=== PATIENT | male | born 1960 | race Caucasian/White ===

== ENCOUNTER 2017-10-04 13:35 | Emergency (ER) | payer MEDICAID ==
[~2017-10-04] VITALS: Ht 177.8 cm; Wt 72.7 kg
[~2017-10-04 13:35] MED LIST: CLIN300C85 PO; DILT180C66 PO; PROP10TA10 PO; TRAM50TA2 PO
[2017-10-04] MEDS ORDERED: haloperidol lactate 5mg/ml inj IM ONE (13:40)
[2017-10-04] MEDS ORDERED: LORazepam 2 mg/ml vial IM ONE (13:40)
[2017-10-04] MEDS ORDERED: normal saline 1000ML IV soln IVB ONE ×2 (13:50)
[2017-10-04 14:01] LABS: BASOPHILS # (AUTO) 0.1 X10'3 (0-0.2); BASOPHILS % (AUTO) 0.6 % (0-1); EOSINOPHILS # (AUTO) 0.2 X10'3 (0-0.9); EOSINOPHILS % (AUTO) 3.1 % (0-6); HEMATOCRIT 39.1 % (42.0-52.0); HEMOGLOBIN 13.2 g/dl (14.0-17.9); LYMPHOCYTES # (AUTO) 2.9 X10'3 (1.1-4.8); LYMPHOCYTES % (AUTO) 37.3 % (21-51); MEAN CORPUSCULAR HEMOGLOBIN 31.7 PG (27.0-31.0); MEAN CORPUSCULAR HGB CONC 33.8 % (33.0-36.5); MEAN CORPUSCULAR VOLUME 93.6 FL (78-98); MEAN PLATELET VOLUME 8.6 FL (7.4-10.4); MONOCYTES # (AUTO) 0.4 X10'3 (0-0.9); MONOCYTES % (AUTO) 5.2 % (2-12); NEUTROPHILS # (AUTO) 4.2 X10'3 (1.8-7.7); NEUTROPHILS % (AUTO) 53.8 % (42-75); PLATELET COUNT 239 X10'3 (140-440); RED BLOOD COUNT 4.18 X10'6 (4.70-6.10); RED CELL DISTRIBUTION WIDTH 13.8 % (11.5-14.5); WHITE BLOOD COUNT 7.9 X10'3 (4.5-11.0)
[2017-10-04 14:18] LABS: ALANINE AMINOTRANSFERASE 31 U/L (12-78); ALBUMIN 3.5 G/DL (3.4-5.0); ALKALINE PHOSPHATASE 90 IU/L (46-116); ANION GAP 10 (8-16); ASPARTATE AMINO TRANSFERASE 23 U/L (10-37); BILIRUBIN,TOTAL 0.2 MG/DL (0.1-1.0); BLOOD UREA NITROGEN 16 MG/DL (7-18); CALCIUM 8.4 MG/DL (8.5-10.1); CHLORIDE 109 MMOL/L (99-107); CREATININE 0.84 MG/DL (0.60-1.10); GLUCOSE 86 MG/DL (70-104); POTASSIUM 4.1 MMOL/L (3.5-5.1); SODIUM 144 MMOL/L (135-145); TOTAL CARBON DIOXIDE 24.6 MMOL/L (24-32); TOTAL PROTEIN 7.1 G/DL (6.4-8.2); eGFR > 90 ML/MIN
[2017-10-04 14:22] LABS: ETHANOL 0.283 GM/DL (0.0-0.010); TROPONIN I < 0.04 NG/ML (0.0-0.05)
[2017-10-04 14:32] LABS: CLARITY,URINE CLEAR (Clear); COLOR,URINE YELLOW (Yellow); GLUCOSE, URINE NEGATIVE (Neg); KETONES,URINE NEGATIVE (Neg); LEUKOCYTE ESTERASE ,URINE NEGATIVE (Neg); NITRITES, URINE NEGATIVE (Neg); OCCULT BLOOD,URINE NEGATIVE (Neg); PH,URINE 5.5 (4.8-8.0); PROTEIN,URINE NEGATIVE (Neg); UROBILINOGEN,URINE 0.2 E.U/dL (0.2-1.0)
[2017-10-04 14:35] LABS: UA COLLECTION TYPE OTHER
[2017-10-04 15:07] LABS: URINE AMPHETAMINE SCREEN POSITIVE (Neg); URINE BARBITUATE SCREEN NEGATIVE (Neg); URINE BENZODIAZEPINES SCREEN NEGATIVE (Neg); URINE CANNABINOID SCREEN POSITIVE (Neg); URINE COCAINE SCREEN NEGATIVE (Neg); URINE METHADONE SCREEN NEGATIVE (Neg); URINE OPIATE SCREEN NEGATIVE (Neg); URINE PHENCYCLIDINE SCREEN NEGATIVE (Neg)
[2017-10-04 17:47] VITALS: BP 140/81
== END 2017-10-04 18:15 | disposition left against medical advice (07) ==
LOC: EDBD 13:35 → ER 13:37
DX: F10.129 Alcohol abuse with intoxication, unspecified (principal); Z90.49 Acquired absence of other specified parts of digestive tract; Z90.89 Acquired absence of other organs; Z98.890 Other specified postprocedural states; Z88.5 Allergy status to narcotic agent; Z88.8 Allergy status to other drugs, medicaments and biological substances; Z79.899 Other long term (current) drug therapy; Y90.9 Presence of alcohol in blood, level not specified
CPT/HCPCS: 36415; 70450; 71045; 80053; 80305; 80320; 81003; 84484; 85025; 93005; 96372; 99285; A4353; J1630; J2060; J7030

== ENCOUNTER 2019-08-20 20:16 | Emergency (ER) | payer MEDICAID ==
[~2019-08-20] VITALS: Ht 170.2 cm; Wt 84.1 kg
[~2019-08-20 20:16] MED LIST changes: +CLIN-97 PO; -CLIN300C85 PO
--- NOTE | 2019-08-20 21:47 | NUR ---
irigated left ear with water and hydrogyn proxide as ordered. Cream colored fluid and clumps of dirt expelled from ear.
[2019-08-20 21:48] LABS: BASOPHILS # (AUTO) 0.1 X10'3 (0-0.2); EOSINOPHILS # (AUTO) 0.2 X10'3 (0-0.9); EOSINOPHILS % (AUTO) 3.6 % (0-6); HEMATOCRIT 40.6 % (42.0-52.0); HEMOGLOBIN 13.5 g/dl (14.0-17.9); LYMPHOCYTES # (AUTO) 1.5 X10'3 (1.1-4.8); LYMPHOCYTES % (AUTO) 26.4 % (21-51); MEAN CORPUSCULAR HEMOGLOBIN 31.4 PG (27.0-31.0); MEAN CORPUSCULAR HGB CONC 33.1 g/dL (33.0-36.5); MEAN CORPUSCULAR VOLUME 94.8 FL (78-98); MEAN PLATELET VOLUME 8.5 FL (7.4-10.4); MONOCYTES # (AUTO) 0.5 X10'3 (0-0.9); MONOCYTES % (AUTO) 8.4 % (2-12); NEUTROPHILS # (AUTO) 3.5 X10'3 (1.8-7.7); NEUTROPHILS % (AUTO) 60.6 % (42-75); PLATELET COUNT 240 X10'3 (140-440); RED BLOOD COUNT 4.29 X10'6 (4.70-6.10); RED CELL DISTRIBUTION WIDTH 14.2 % (11.5-14.5); WHITE BLOOD COUNT 5.8 X10'3 (4.5-11.0)
[2019-08-20 22:02] LABS: ALANINE AMINOTRANSFERASE 49 U/L (12-78); ALBUMIN 3.5 G/DL (3.4-5.0); ALBUMIN/GLOBULIN RATIO 0.9 (1.1-1.5); ALKALINE PHOSPHATASE 154 IU/L (46-116); ANION GAP 12 (8-16); ASPARTATE AMINO TRANSFERASE 47 U/L (10-37); BILIRUBIN,TOTAL 0.4 MG/DL (0.1-1.0); BLOOD UREA NITROGEN 23 MG/DL (7-18); BUN/CREATININE RATIO 19.8 (5.4-32.0); CALCIUM 8.8 MG/DL (8.5-10.1); CHLORIDE 106 MMOL/L (99-107); CREATININE 1.16 MG/DL (0.60-1.10); GLUCOSE 159 MG/DL (70-104); POTASSIUM 3.8 MMOL/L (3.5-5.1); SODIUM 143 MMOL/L (135-145); TOTAL CARBON DIOXIDE 24.7 MMOL/L (24-32); TOTAL PROTEIN 7.3 G/DL (6.4-8.2); eGFR 64 ML/MIN
[2019-08-20] MEDS ORDERED: iohexol 300mg/ml 100ml inj. ONE (22:29)
[2019-08-20] MEDS ORDERED: piperacillin/tazo 4.5gm/100ml 100 ML IV STA (23:39)
[2019-08-20] MEDS ORDERED: vancomycin/NS 1 GM ADD-VANTAGE 250 ML IV ONE (23:40)
[2019-08-21] MEDS ORDERED: AMOX-422 PO (00:42)
[2019-08-21 03:41] VITALS: BP 142/98
--- NOTE | 2019-08-21 03:46 | NUR ---
called a taxi to take pt home
== END 2019-08-21 03:43 | disposition home or self-care (01) ==
LOC: ER 20:16
DX: M54.89 Other dorsalgia (principal); I96 Gangrene, not elsewhere classified; R22.1 Localized swelling, mass and lump, neck; R06.02 Shortness of breath; R13.10 Dysphagia, unspecified; Z90.89 Acquired absence of other organs; Z98.890 Other specified postprocedural states; Z72.89 Other problems related to lifestyle; Z88.5 Allergy status to narcotic agent; Z88.8 Allergy status to other drugs, medicaments and biological substances; Z79.2 Long term (current) use of antibiotics; Z79.899 Other long term (current) drug therapy
CPT/HCPCS: 36415; 70491; 80053; 85025; 96365; 96366; 96368; 99285; J2543; J3370; Q9967; 96367

== ENCOUNTER 2020-01-19 10:55 | Emergency (ER) | payer MEDICAID ==
[~2020-01-19] VITALS: Ht 175.3 cm; Wt 80.0 kg
[2020-01-19] MEDS ORDERED: normal saline 1000ML IV soln IV ONE (15:05)
[2020-01-19] MEDS ORDERED: iohexol 300mg/ml 100ml inj. ONE (15:15)
[2020-01-19 15:42] LABS: BASOPHILS # (AUTO) 0.1 X10'3 (0-0.2); EOSINOPHILS # (AUTO) 0.2 X10'3 (0-0.9); EOSINOPHILS % (AUTO) 3.2 % (0-6); HEMATOCRIT 44.8 % (42.0-52.0); HEMOGLOBIN 14.8 g/dl (14.0-17.9); LYMPHOCYTES # (AUTO) 1.7 X10'3 (1.1-4.8); LYMPHOCYTES % (AUTO) 24.6 % (21-51); MEAN CORPUSCULAR HEMOGLOBIN 31.6 PG (27.0-31.0); MEAN CORPUSCULAR HGB CONC 33.1 g/dL (33.0-36.5); MEAN CORPUSCULAR VOLUME 95.3 FL (78-98); MEAN PLATELET VOLUME 8.5 FL (7.4-10.4); MONOCYTES # (AUTO) 0.6 X10'3 (0-0.9); MONOCYTES % (AUTO) 8.3 % (2-12); NEUTROPHILS # (AUTO) 4.4 X10'3 (1.8-7.7); NEUTROPHILS % (AUTO) 62.9 % (42-75); PLATELET COUNT 243 X10'3 (140-440); RED CELL DISTRIBUTION WIDTH 14.5 % (11.5-14.5)
[2020-01-19 15:58] LABS: ALANINE AMINOTRANSFERASE 39 U/L (12-78); ALBUMIN 3.6 G/DL (3.4-5.0); ALBUMIN/GLOBULIN RATIO 0.9 (1.1-1.5); ALKALINE PHOSPHATASE 138 IU/L (46-116); ANION GAP 8 (8-16); ASPARTATE AMINO TRANSFERASE 28 U/L (10-37); BILIRUBIN,TOTAL 0.4 MG/DL (0.1-1.0); BLOOD UREA NITROGEN 24 MG/DL (7-18); BUN/CREATININE RATIO 26.7 (5.4-32.0); CALCIUM 8.7 MG/DL (8.5-10.1); CHLORIDE 105 MMOL/L (99-107); GLUCOSE 124 MG/DL (70-104); POTASSIUM 4.4 MMOL/L (3.5-5.1); SODIUM 139 MMOL/L (135-145); TOTAL CARBON DIOXIDE 26.4 MMOL/L (24-32); TOTAL PROTEIN 7.8 G/DL (6.4-8.2); eGFR 86 ML/MIN
[2020-01-19 18:00] VITALS: BP 119/87
== END 2020-01-19 18:11 | disposition home or self-care (01) ==
LOC: ER 10:56
DX: R59.0 Localized enlarged lymph nodes (principal); R51.9 Headache, unspecified; F19.90 Other psychoactive substance use, unspecified, uncomplicated; Z90.89 Acquired absence of other organs; Z98.890 Other specified postprocedural states; Z72.89 Other problems related to lifestyle; Z88.5 Allergy status to narcotic agent; Z88.8 Allergy status to other drugs, medicaments and biological substances; Z79.2 Long term (current) use of antibiotics; Z79.899 Other long term (current) drug therapy
CPT/HCPCS: 36415; 70491; 71045; 80053; 83605; 84145; 85025; 87040; 96360; 96361; 99285; J7030; Q9967

== ENCOUNTER 2020-02-24 09:44 | Day surgery (SDC) | payer MEDICAID ==
[~2020-02-24] VITALS: Ht 175.3 cm; Wt 81.8 kg
[2020-02-24 10:05] VITALS: BP 114/68
[2020-02-24] MEDS ORDERED: normal saline 1000ml 1,000 ML IV SCH (10:20)
[2020-02-24] MEDS ORDERED: CEPH500C2 PO (10:37)
[2020-02-24] MEDS ORDERED: HYDR2TAB7 PO (10:37)
[2020-02-24] MEDS ORDERED: ethyl chloride 103.5ml spray TP ONE (11:35)
--- NOTE | 2020-02-24 12:50 | NUR ---
PT RESCHEDULED FOR PORT DUE TO DRUG ALLERGIES. NEEDS TO BE WITH GENERAL ANESTHESIA. PRE COVID SEND OUT TEST COMPLETED SENT TO LAB. CALL TO [facility]. PIV REMOVED REVIEWED DATES FOR PREOP AND PROCEDURE, PT STATES UNDERSTANDING, JESSICA COVID TEST WELL. PT TO FRONT OF HOSPITAL BY W/C, ALL PERSONAL BELONGINGS WITH PT.
== END 2020-02-24 12:50 | disposition home or self-care (01) ==
LOC: SSTAY O 09:44
PROVIDERS: ATTEND Radiology Diagnostic Radiology
DX: C02.9 Malignant neoplasm of tongue, unspecified (principal); Z53.8 Procedure and treatment not carried out for other reasons; Z88.8 Allergy status to other drugs, medicaments and biological substances; Z88.5 Allergy status to narcotic agent; Z20.828 Contact with and (suspected) exposure to other viral communicable diseases
CPT/HCPCS: 36415; 87635

== ENCOUNTER 2020-03-02 06:59 | Day surgery (SDC) | payer MEDICAID ==
[2020-02-29 11:45] LABS: BASOPHILS # (AUTO) 0.1 X10'3 (0-0.2); BASOPHILS % (AUTO) 0.7 % (0-1); EOSINOPHILS # (AUTO) 0.2 X10'3 (0-0.9); EOSINOPHILS % (AUTO) 1.9 % (0-6); LYMPHOCYTES % (AUTO) 21.9 % (21-51); MEAN CORPUSCULAR HEMOGLOBIN 31.7 PG (27.0-31.0); MEAN CORPUSCULAR HGB CONC 33.9 g/dL (33.0-36.5); MEAN CORPUSCULAR VOLUME 93.6 FL (78-98); MEAN PLATELET VOLUME 8.4 FL (7.4-10.4); MONOCYTES # (AUTO) 0.6 X10'3 (0-0.9); MONOCYTES % (AUTO) 6.3 % (2-12); NEUTROPHILS # (AUTO) 6.3 X10'3 (1.8-7.7); NEUTROPHILS % (AUTO) 69.2 % (42-75); PRE OP HEMATOCRIT 39.9 % (42.0-52.0); PRE OP HEMOGLOBIN 13.5 g/dL (14.0-17.9); PRE OP PLATELET COUNT 299 X10'3 (140-440); RED BLOOD COUNT 4.26 X10'6 (4.70-6.10); RED CELL DISTRIBUTION WIDTH 13.7 % (11.5-14.5)
[2020-02-29 11:58] LABS: ALBUMIN 3.3 G/DL (3.4-5.0); ALBUMIN/GLOBULIN RATIO 0.9 (1.1-1.5); ALKALINE PHOSPHATASE 90 IU/L (46-116); BLOOD UREA NITROGEN 18 MG/DL (7-18); CALCIUM 9.1 MG/DL (8.5-10.1); CHLORIDE 103 MMOL/L (99-107); CREATININE 0.82 MG/DL (0.60-1.10); PRE OP ALT 25 U/L (30-65); PRE OP ANION GAP 8 (8-16); PRE OP AST 12 U/L (10-37); PRE OP BILIRUB, TOTAL 0.2 MG/DL (0.0-1.0); PRE OP GLUCOSE 123 MG/DL (70-104); PRE OP POTASSIUM 3.9 MMOL/L (3.4-5.1); PRE OP SODIUM 141 MMOL/L (135-145); TOTAL CARBON DIOXIDE 30.3 MMOL/L (24-32); TOTAL PROTEIN 7.1 G/DL (6.4-8.2); eGFR > 90 ML/MIN
[~2020-03-02] VITALS: Ht 175.3 cm; Wt 78.0 kg
[~2020-03-02 06:59] MED LIST changes: -CLIN-97 PO; -DILT180C66 PO; +HYDR-3973 PO; -PROP10TA10 PO; -TRAM50TA2 PO; +famotidine 20mg tablet PO ONE; +normal saline 1000ml 1,000 ML IV SCH
[2020-03-02 07:00] VITALS: BP 144/97
[2020-03-02] MEDS ORDERED: heparin sodium, porcine/PF 100unit/ml 5ML syringe ONE (07:34)
[2020-03-02] MEDS ORDERED: ceFAZolin 2gm in dextrose, iso 100 ML IV ONE (08:55)
[2020-03-02] MEDS ORDERED: fentaNYL/PF 50MCG/1 ML 2ML syringe ONE (08:56)
[2020-03-02] MEDS ORDERED: sevoflurane 250ml liquid IH ONE (08:56)
[2020-03-02] MEDS ORDERED: midazolam 2 mg/2 ml injection ONE (08:57)
[2020-03-02] MEDS ORDERED: propofol inj 20 ML IV ONE (08:58)
[2020-03-02 09:34] VITALS: BP 144/95
--- NOTE | 2020-03-02 09:34 | NUR ---
PReceived from OR via [facility] , accompanied by Anesthesiologist CHAVEZ and report given by Anesthesiolgist. PATIENT WITH 20G PIV IN LEFT UE RUNNING LR AT 100. DENIES PAIN. 10L MASK ON WITH 100% SATURATIONS. RIGHT ANTERIOR CHEST DRESSING IS CDI. VSS Addendum: 03/02/20 at 0949 by Alfredo Kennedy RN, RN Amended: Links added.
[2020-03-02] MEDS ORDERED: proCHLORperazine 10 MG/2 ml inj IV PRN (09:40)
[2020-03-02] MEDS ORDERED: meperidine/PF 25mg/ml syringe IV PRN ×3 (09:40)
[2020-03-02] MEDS ORDERED: ondansetron/PF 4mg/2ml inj IV PRN (09:40)
[2020-03-02] MEDS ORDERED: morphine 4 MG/ML inj SYRINge IV PRN (09:40)
[2020-03-02] MEDS ORDERED: ringers solution, lacted 1,000 ML IV SCH (09:40)
[2020-03-02] MEDS ORDERED: morphine 2 MG/ML inj. syringe IV PRN (09:40)
[2020-03-02 09:44] VITALS: BP 131/76
[2020-03-02 09:54] VITALS: BP 112/74
[2020-03-02 10:04] VITALS: BP 116/70
--- NOTE | 2020-03-02 10:14 | NUR ---
PATIENT VERBALIZED UNDERSTANDING, OPPORTUNITY TO ASK QUESTIONS GIVEN AND PATIENT COMFORTABLE WITH DC. IV TAKEN OUT WITHOUT COMPLICATION. PATIENT HAS MET ALL DC CRITERIA FOR DC HOME. I HAVE REVIEWED D/C INSTRUCTIONS WITH PATIENT. TAKEN OUT VIA WHEELCHAIR WHERE PATIENT WAS TAKEN HOME WITH ALL BELONGINGS. EX GAVE PATIENT TRANSPORT HOME. ANTERIOR CHEST SITE IS CDI AND PATIENT DENIES PAIN . Addendum: 03/02/20 at 1030 by Alfredo Kennedy RN, RN Amended: Links added.
== END 2020-03-02 10:14 | disposition home or self-care (01) ==
LOC: PAS 06:59
PROVIDERS: ATTEND Radiology Vascular & Interventional Radiology
DX: C76.0 Malignant neoplasm of head, face and neck (principal); Z88.8 Allergy status to other drugs, medicaments and biological substances; Z88.5 Allergy status to narcotic agent; Z79.899 Other long term (current) drug therapy
CPT/HCPCS: 36415; 36561; 76937; 77001; 80053; 82948; 85025; 93005; C1769; C1788; C1894; J1642; J2250; J2704; J3010; J7030; A4618

== ENCOUNTER 2022-12-13 06:40 | Day surgery (SDC) | payer MEDICAID ==
[2022-12-10 15:37] LABS: BASOPHILS # (AUTO) 0.1 X10'3 (0-0.2); BASOPHILS % (AUTO) 1.1 % (0-1); EOSINOPHILS # (AUTO) 0.1 X10'3 (0-0.9); EOSINOPHILS % (AUTO) 1.9 % (0-6); LYMPHOCYTES # (AUTO) 0.9 X10'3 (1.1-4.8); LYMPHOCYTES % (AUTO) 16.3 % (21-51); MEAN CORPUSCULAR HEMOGLOBIN 33.5 PG (27.0-31.0); MEAN CORPUSCULAR HGB CONC 33.9 g/dL (33.0-36.5); MEAN PLATELET VOLUME 8.5 FL (7.4-10.4); MONOCYTES # (AUTO) 0.4 X10'3 (0-0.9); NEUTROPHILS # (AUTO) 3.9 X10'3 (1.8-7.7); NEUTROPHILS % (AUTO) 72.7 % (42-75); PRE OP HEMATOCRIT 44.3 % (42.0-52.0); PRE OP PLATELET COUNT 227 X10'3 (140-440); PRE OP WHITE BLOOD COUNT 5.4 10'3 (4.8-10.8); RED BLOOD COUNT 4.48 X10'6 (4.70-6.10)
[2022-12-10 15:48] LABS: ALBUMIN 3.8 G/DL (3.4-5.0); ALKALINE PHOSPHATASE 162 IU/L (46-116); BLOOD UREA NITROGEN 18 MG/DL (7-18); BUN/CREATININE RATIO 16.8 (10.0-20.0); CALCIUM 9.6 MG/DL (8.5-10.1); CHLORIDE 99 MMOL/L (99-107); CREATININE 1.07 MG/DL (0.60-1.10); PRE OP ALT 38 U/L (30-65); PRE OP ANION GAP 9 (8-16); PRE OP AST 35 U/L (10-37); PRE OP BILIRUB, TOTAL 0.3 MG/DL (0.0-1.0); PRE OP GLUCOSE 87 MG/DL (70-104); PRE OP POTASSIUM 4.1 MMOL/L (3.4-5.1); PRE OP SODIUM 134 MMOL/L (135-145); TOTAL CARBON DIOXIDE 25.9 MMOL/L (24-32); TOTAL PROTEIN 7.6 G/DL (6.4-8.2); eGFR 70 ML/MIN
[~2022-12-13] VITALS: Ht 175.3 cm; Wt 76.8 kg
[2022-12-13] VITALS (10 sets, daily range): BP systolic 94–147; BP diastolic 51–91; PULSE 85–97; RESP 12–16; TEMP 98.4; O2SAT 90–100
[~2022-12-13 06:40] MED LIST changes: -HYDR-3973 PO; +NO HOME MEDS; -normal saline 1000ml 1,000 ML IV SCH; +ringers solution, lacted 1,000 ML IV SCH
[2022-12-13] MEDS ORDERED: normal saline 1000ml 1,000 ML IV PRN (07:10)
[2022-12-13] MEDS ORDERED: hydrALAZINE 20mg/ml inj. IV PRN (07:35)
[2022-12-13] MEDS ORDERED: fentaNYL/PF 50MCG/1 ML 2ML syringe IV PRN ×2 (07:35)
[2022-12-13] MEDS ORDERED: labetalol 20mg/4ml (5mg/ml) syringe IV PRN (07:35)
[2022-12-13] MEDS ORDERED: ringers solution, lacted 1,000 ML IV SCH (07:35)
[2022-12-13] MEDS ORDERED: morphine 4 MG/ML inj SYRINge IV PRN (07:35)
[2022-12-13] MEDS ORDERED: morphine 2 MG/ML inj. syringe IV PRN (07:35)
[2022-12-13] MEDS ORDERED: ondansetron/PF 4mg/2ml inj IV PRN (07:35)
[2022-12-13] MEDS ORDERED: midazolam 1 mg/ML 2ml injection ONE (08:15)
[2022-12-13] MEDS ORDERED: ondansetron/PF 4mg/2ml inj ONE (08:16)
[2022-12-13] MEDS ORDERED: propofol inj 20 ML IV ONE (08:16)
[2022-12-13] MEDS ORDERED: meperidine/PF 50mg/ml syringe ONE (08:16)
[2022-12-13] MEDS ORDERED: dexamethasone sod phosphate 4mg/ml inj. ONE (08:30)
[2022-12-13] MEDS ORDERED: desflurane 240ml liquid inh. IH ONE (08:30)
[2022-12-13] MEDS ORDERED: acetaminophen 1,000mg/100ml IV 100 ML IV ONE (08:46)
--- NOTE | 2022-12-13 08:56 | NUR ---
Received from OR via [facility], accompanied by Anesthesiologist and report given by GALLO Anesthesiologist. PATIENT STILL UNCONSCIOUS WITH ORAL AIRWAY, NO S/S OF PAIN, V/S WNL, SCD ON, PIV 20G LEFT WRIST, DERMABONDED SITE CLOSED C/D/I TO RIGHT UPPER CHEST. Addendum: 12/13/22 at 0909 by Pedro Vera RN Amended: Links added.
--- NOTE | 2022-12-13 10:06 | NUR ---
ALL DISCHARGE CRITERIA HAS BEEN MET. VSS, PAIN AT A TOLERABLE LEVEL, ABLE TO SAFELY AMBULATE AND TRANSFER SELF. IV TAKEN OUT WITHOUT ANY COMPLICATIONS. ALL DISCHARGE INSTRUCTIONS COVERED WITH PATIENT AND ALL QUESTIONS ANSWERED. PATIENT TAKEN OUT VIA WHEELCHAIR WITH ALL BELONGINGS TO PERSONAL VEHICLE WHERE FRIEND DROVE PATIENT HOME. Addendum: 12/13/22 at 1017 by Pedro Vera RN Amended: Links added.
== END 2022-12-13 10:06 | disposition home or self-care (01) ==
LOC: SSTAY O 06:40
PROVIDERS: ATTEND Radiology Vascular & Interventional Radiology
DX: Z45.2 Encounter for adjustment and management of vascular access device (principal); I10 Essential (primary) hypertension; M19.90 Unspecified osteoarthritis, unspecified site; Z85.21 Personal history of malignant neoplasm of larynx; Z98.890 Other specified postprocedural states; Z88.5 Allergy status to narcotic agent; Z88.4 Allergy status to anesthetic agent; Z91.09 Other allergy status, other than to drugs and biological substances; Z79.899 Other long term (current) drug therapy
CPT/HCPCS: 36415; 36590; 80053; 82948; 85025; 93005; J0131; J1100; J2175; J2250; J2405; J2704; J7030; J7120; Z7506; Z7512; A4618

== ENCOUNTER 2023-07-06 09:36 | Inpatient (IN) | payer MEDICAID ==
[~2023-07-06] VITALS: Ht 175.3 cm; Wt 65.4 kg
[~2023-07-06 09:36] MED LIST changes: -famotidine 20mg tablet PO ONE; -ringers solution, lacted 1,000 ML IV SCH
[2023-07-06] MEDS: chlordiazePOXIDE 25mg capsule PO ONE (10:26)
[2023-07-06] MEDS: LORazepam 1 MG tablet PO ONE (10:29)
[2023-07-06] MEDS ORDERED: diltiazem-D5W 125mg/125ml 125 ML IV ONE ×2 (11:05)
[2023-07-06 11:27] LABS: EOSINOPHILS # (AUTO) 0.1 X10'3 (0-0.9); HEMOGLOBIN 15.3 g/dl (14.0-17.9); NEUTROPHILS # (AUTO) 3.7 X10'3 (1.8-7.7); RED CELL DISTRIBUTION WIDTH 14.1 % (11.5-14.5); WHITE BLOOD COUNT 4.8 X10'3 (4.5-11.0)
[2023-07-06] MEDS: ringers solution, lacted 1,000 ML IV ONE (11:29)
[2023-07-06 11:30] LABS: BASOPHILS # (AUTO) 0.1 X10'3 (0-0.2); BASOPHILS % (AUTO) 1.2 % (0-1); HEMATOCRIT 45.2 % (42.0-52.0); LYMPHOCYTES # (AUTO) 0.6 X10'3 (1.1-4.8); LYMPHOCYTES % (AUTO) 13.3 % (21-51); MEAN CORPUSCULAR HEMOGLOBIN 33.5 PG (27.0-31.0); MEAN CORPUSCULAR HGB CONC 33.8 g/dL (33.0-36.5); MEAN PLATELET VOLUME 9.1 FL (7.4-10.4); MONOCYTES # (AUTO) 0.3 X10'3 (0-0.9); NEUTROPHILS % (AUTO) 77.5 % (42-75); PLATELET COUNT 231 X10'3 (140-440); RED BLOOD COUNT 4.56 X10'6 (4.70-6.10)
[2023-07-06] MEDS: magnesium oxide 400mg tablet PO ONE (11:30)
[2023-07-06] MEDS: diltiazem-NS 100mg/100ml 100 ML IV ONE (11:33)
[2023-07-06 11:38] LABS: APTT 24 SECONDS (22-32); PROTHROMBIN TIME 9.7 SECONDS (9.0-12.0)
[2023-07-06 11:39] LABS: INR 0.9 INR
[2023-07-06 11:42] LABS: ALANINE AMINOTRANSFERASE 70 U/L (12-78); ALBUMIN 3.5 G/DL (3.4-5.0); ALKALINE PHOSPHATASE 114 IU/L (46-116); ANION GAP 14 (8-16); ASPARTATE AMINO TRANSFERASE 77 U/L (10-37); BILIRUBIN,TOTAL 0.4 MG/DL (0.1-1.0); BLOOD UREA NITROGEN 34 MG/DL (7-18); BUN/CREATININE RATIO 28.1 (10.0-20.0); CALCIUM 8.8 MG/DL (8.5-10.1); CHLORIDE 104 MMOL/L (99-107); CREATININE 1.21 MG/DL (0.60-1.10); GLUCOSE 85 MG/DL (70-104); POTASSIUM 3.8 MMOL/L (3.5-5.1); SODIUM 140 MMOL/L (135-145); TOTAL CARBON DIOXIDE 22.3 MMOL/L (24-32); TOTAL PROTEIN 7.1 G/DL (6.4-8.2); eCRCL 60 ML/MIN; eGFR 61 ML/MIN
[2023-07-06 11:49] LABS: BILIRUBIN,DIRECT 0.2 MG/DL (0-0.3); ETHANOL 150 MG/DL (<10); LIPASE 27 U/L (16-77); MAGNESIUM 1.6 MG/DL (1.5-2.4); PRO BRAIN NATRIURETIC PEPTIDE 317 PG/ML (0-125)
[2023-07-06] MEDS ORDERED: haloperidol lactate 5mg/ml inj IM PRN (12:40)
[2023-07-06] MEDS ORDERED: haloperidol 5mg tablet PO PRN (12:40)
[2023-07-06] MEDS ORDERED: LORazepam 1 MG tablet PO PRN (12:40)
[2023-07-06] MEDS ORDERED: potassium Cl 40MEQ/1/2NS 520ml 520 ML IV PRN (12:45)
[2023-07-06] MEDS ORDERED: normal saline 1000ml 1,000 ML IV SCH (12:45)
[2023-07-06] MEDS ORDERED: magnesium 4gm in 100ml NS 100 ML IV PRN (12:45)
[2023-07-06] MEDS ORDERED: potassium Cl 20 mEq SR tablet PO PRN ×2 (12:45)
[2023-07-06] MEDS ORDERED: acetaminophen 325mg tablet PO PRN (12:45)
[2023-07-06] MEDS: thiamine 100mg/ml 2ml inj. IV SCH (12:50)
[2023-07-06] MEDS: magnesium 2GM in 50ml NS 50 ML IV ONE (12:51)
[2023-07-06 14:04] LABS: BILIRUBIN,URINE NEGATIVE (Neg); CLARITY,URINE CLOUDY (Clear); COLOR,URINE YELLOW (Yellow); GLUCOSE, URINE NEGATIVE (Neg); KETONES,URINE NEGATIVE (Neg); LEUKOCYTE ESTERASE ,URINE NEGATIVE (Neg); NITRITES, URINE NEGATIVE (Neg); OCCULT BLOOD,URINE LARGE (Neg); PH,URINE 5.5 (4.8-8.0); PROTEIN,URINE TRACE mg/dl (Neg); UROBILINOGEN,URINE 0.2 E.U/dL (0.2-1.0)
[2023-07-06 14:11] LABS: UA COLLECTION TYPE FOLEY CATH
[2023-07-06 14:12] LABS: MUCUS STRANDS FEW /LPF (Neg); SQUAMOUS EPITHELIAL CELL,UR FEW /LPF (FEW)
[2023-07-06 14:13] LABS: BACTERIA,URINE 1+ /HPF (Neg); RBC,URINE TNTC /HPF (0-2); WBC,URINE 0-4 /HPF (0-4)
[2023-07-06 14:14] LABS: TRANSITIONAL EPI CELLS,URINE FEW /HPF
[2023-07-06] MEDS: atenolol 50mg tablet PO SCH (14:14)
[2023-07-06 14:15] LABS: URINE AMPHETAMINE SCREEN POSITIVE (Neg); URINE BARBITUATE SCREEN NEGATIVE (Neg); URINE BENZODIAZEPINES SCREEN NEGATIVE (Neg); URINE CANNABINOID SCREEN POSITIVE (Neg); URINE COCAINE SCREEN NEGATIVE (Neg); URINE METHADONE SCREEN NEGATIVE (Neg); URINE OPIATE SCREEN NEGATIVE (Neg); URINE PHENCYCLIDINE SCREEN NEGATIVE (Neg)
[2023-07-06] MEDS: D5-1/2NS w/20 mEq potassium per 1000ml IV ONE (14:15)
[2023-07-06 15:05] VITALS: BP 140/86; PULSE 84; RESP 16; TEMP 97.8; O2SAT 99
[2023-07-06] MEDS: dextrose 5%-1/2 normal saline 1,000 ML IV SCH (15:10)
[2023-07-06] MEDS: LORazepam 2 mg/ml vial IV PRN (17:15)
[2023-07-06 18:00] VITALS: BP 170/95; PULSE 74; RESP 20; TEMP 97.4; O2SAT 95
[2023-07-06 20:00] VITALS: RESP 20; O2SAT 95
[2023-07-06] MEDS: heparin, porcine 5000 units/ml vial SQ SCH (20:26)
[2023-07-06 22:00] VITALS: BP 167/102; PULSE 75; RESP 20; TEMP 97.5; O2SAT 97
[2023-07-07] VITALS (10 sets, daily range): BP systolic 132–170; BP diastolic 77–107; PULSE 69–81; RESP 11–20; TEMP 97–97.9; O2SAT 93–100
[2023-07-07 05:46] LABS: PROTHROMBIN TIME 9.9 SECONDS (9.0-12.0)
[2023-07-07 05:49] LABS: INR 0.9 INR
[2023-07-07 05:56] LABS: BASOPHILS # (AUTO) 0.1 X10'3 (0-0.2); BASOPHILS % (AUTO) 1.1 % (0-1); EOSINOPHILS # (AUTO) 0.2 X10'3 (0-0.9); EOSINOPHILS % (AUTO) 3.1 % (0-6); HEMATOCRIT 44.4 % (42.0-52.0); LYMPHOCYTES # (AUTO) 0.6 X10'3 (1.1-4.8); MEAN CORPUSCULAR HEMOGLOBIN 33.5 PG (27.0-31.0); MEAN CORPUSCULAR HGB CONC 33.8 g/dL (33.0-36.5); MEAN CORPUSCULAR VOLUME 99.2 FL (78-98); MEAN PLATELET VOLUME 9.7 FL (7.4-10.4); MONOCYTES # (AUTO) 0.5 X10'3 (0-0.9); MONOCYTES % (AUTO) 10.4 % (2-12); NEUTROPHILS # (AUTO) 3.8 X10'3 (1.8-7.7); NEUTROPHILS % (AUTO) 73.4 % (42-75); PLATELET COUNT 198 X10'3 (140-440); RED BLOOD COUNT 4.47 X10'6 (4.70-6.10); RED CELL DISTRIBUTION WIDTH 14.3 % (11.5-14.5); WHITE BLOOD COUNT 5.2 X10'3 (4.5-11.0)
[2023-07-07 06:05] LABS: MAGNESIUM 1.9 MG/DL (1.5-2.4); PHOSPHORUS 2.6 MG/DL (2.3-4.5)
[2023-07-07] MEDS: multivitamins, therapeutics tablet PO SCH (08:10)
[2023-07-07] MEDS: folic acid 1mg/0.2ml inj IV SCH (10:38)
[2023-07-07] MEDS: ondansetron/PF 4mg/2ml inj IV PRN (10:38)
[2023-07-07] MEDS: acetaminophen 325mg tablet PO PRN (11:11)
[2023-07-07] MEDS: traMADol 50MG tablet PO PRN (14:18)
[2023-07-07] MEDS ORDERED: LORazepam 1 MG tablet PO PRN (16:05)
[2023-07-07] MEDS: acetaminophen 325mg tablet PO SCH (17:20)
[2023-07-07] MEDS: morphine 2 MG/ML inj. syringe IV PRN (17:58)
[2023-07-07] MEDS: HYDROcodone/acetaminophen 5mg/325mg tablet PO PRN (20:14)
[2023-07-08] VITALS (8 sets, daily range): BP systolic 111–149; BP diastolic 60–98; PULSE 78–89; RESP 16–21; TEMP 97.5–98.6; O2SAT 93–98
[2023-07-08 05:58] LABS: INR 1.1 INR; PROTHROMBIN TIME 11.6 SECONDS (9.0-12.0)
[2023-07-08 05:59] LABS: EOSINOPHILS # (AUTO) 0.1 X10'3 (0-0.9); MEAN CORPUSCULAR HEMOGLOBIN 33.7 PG (27.0-31.0); NEUTROPHILS # (AUTO) 5.7 X10'3 (1.8-7.7)
[2023-07-08 06:04] LABS: BASOPHILS # (AUTO) 0.2 X10'3 (0-0.2); HEMATOCRIT 46.7 % (42.0-52.0); HEMOGLOBIN 15.9 g/dl (14.0-17.9); LYMPHOCYTES # (AUTO) 0.4 X10'3 (1.1-4.8); MEAN PLATELET VOLUME 9.5 FL (7.4-10.4); MONOCYTES # (AUTO) 0.7 X10'3 (0-0.9); PLATELET COUNT 209 X10'3 (140-440); RED BLOOD COUNT 4.72 X10'6 (4.70-6.10); WHITE BLOOD COUNT 7.2 X10'3 (4.5-11.0)
[2023-07-08 06:14] LABS: ALANINE AMINOTRANSFERASE 46 U/L (12-78); ALBUMIN 3.3 G/DL (3.4-5.0); ALBUMIN/GLOBULIN RATIO 0.9 (1.1-1.5); ALKALINE PHOSPHATASE 107 IU/L (46-116); AMYLASE 29 U/L (25-115); ANION GAP 6 (8-16); ASPARTATE AMINO TRANSFERASE 33 U/L (10-37); BILIRUBIN,TOTAL 0.9 MG/DL (0.1-1.0); BLOOD UREA NITROGEN 16 MG/DL (7-18); BUN/CREATININE RATIO 15.7 (10.0-20.0); CHLORIDE 96 MMOL/L (99-107); CREATININE 1.02 MG/DL (0.60-1.10); GLUCOSE 123 MG/DL (70-104); LIPASE 16 U/L (16-77); MAGNESIUM 1.3 MG/DL (1.5-2.4); PHOSPHORUS 2.3 MG/DL (2.3-4.5); POTASSIUM 4.2 MMOL/L (3.5-5.1); SODIUM 132 MMOL/L (135-145); TOTAL CARBON DIOXIDE 30.5 MMOL/L (24-32); TOTAL PROTEIN 6.9 G/DL (6.4-8.2); eCRCL 71 ML/MIN; eGFR 74 ML/MIN
[2023-07-08 06:27] LABS: BASOPHILS % (AUTO) 0.4 % (0-1); EOSINOPHILS % (AUTO) 1.2 % (0-6); LYMPHOCYTES % (AUTO) 9.6 % (21-51); MONOCYTES % (AUTO) 11.2 % (2-12); NEUTROPHILS % (AUTO) 77.6 % (42-75)
[2023-07-08 08:00] LABS: PLATELET ESTIMATE NORMAL; TOTAL CELLS COUNTED 100; TOXIC GRANULATION 1+
[2023-07-08] MEDS: magnesium Cl slow-release 64mg tablet PO PRN (09:12)
[2023-07-08 10:44] LABS: D-DIMER 1.06 MG/L FEU (0-0.50)
[2023-07-08] MEDS: tamsulosin 0.4mg capsule PO SCH (12:45)
[2023-07-08] MEDS: magnesium 2GM in 50ml NS 50 ML IV PRN (16:10)
[2023-07-08] MEDS ORDERED: iohexol 300mg/ml 100ml inj. ONE (17:07)
[2023-07-08] MEDS: docusate sod 100mg capsule PO SCH (20:44)
[2023-07-08] MEDS: normal saline 1000ml 1,000 ML IV SCH (20:58)
[2023-07-09] VITALS (9 sets, daily range): BP systolic 89–117; BP diastolic 49–68; PULSE 81–88; RESP 15–18; TEMP 97.3–98.5; O2SAT 93–98
[2023-07-09 06:15] LABS: BASOPHILS # (AUTO) 0.1 X10'3 (0-0.2); BASOPHILS % (AUTO) 1.1 % (0-1); EOSINOPHILS # (AUTO) 0.1 X10'3 (0-0.9); EOSINOPHILS % (AUTO) 2.2 % (0-6); HEMATOCRIT 41.7 % (42.0-52.0); HEMOGLOBIN 14.2 g/dl (14.0-17.9); LYMPHOCYTES # (AUTO) 0.7 X10'3 (1.1-4.8); MEAN CORPUSCULAR HEMOGLOBIN 33.3 PG (27.0-31.0); MEAN CORPUSCULAR HGB CONC 34.1 g/dL (33.0-36.5); MEAN CORPUSCULAR VOLUME 97.7 FL (78-98); MEAN PLATELET VOLUME 9.3 FL (7.4-10.4); MONOCYTES # (AUTO) 0.8 X10'3 (0-0.9); MONOCYTES % (AUTO) 12.6 % (2-12); NEUTROPHILS # (AUTO) 4.3 X10'3 (1.8-7.7); NEUTROPHILS % (AUTO) 72.1 % (42-75); PLATELET COUNT 180 X10'3 (140-440); RED BLOOD COUNT 4.27 X10'6 (4.70-6.10); RED CELL DISTRIBUTION WIDTH 13.7 % (11.5-14.5)
[2023-07-09 06:32] LABS: ALANINE AMINOTRANSFERASE 26 U/L (12-78); ALBUMIN 2.5 G/DL (3.4-5.0); ALBUMIN/GLOBULIN RATIO 0.8 (1.1-1.5); ALKALINE PHOSPHATASE 81 IU/L (46-116); AMYLASE 24 U/L (25-115); ANION GAP 6 (8-16); ASPARTATE AMINO TRANSFERASE 13 U/L (10-37); BILIRUBIN,TOTAL 0.9 MG/DL (0.1-1.0); BLOOD UREA NITROGEN 20 MG/DL (7-18); BUN/CREATININE RATIO 19.6 (10.0-20.0); CALCIUM 7.6 MG/DL (8.5-10.1); CHLORIDE 98 MMOL/L (99-107); CREATININE 1.02 MG/DL (0.60-1.10); GLUCOSE 99 MG/DL (70-104); LIPASE 10 U/L (16-77); MAGNESIUM 1.6 MG/DL (1.5-2.4); SODIUM 132 MMOL/L (135-145); TOTAL CARBON DIOXIDE 27.8 MMOL/L (24-32); TOTAL PROTEIN 5.8 G/DL (6.4-8.2); eCRCL 71 ML/MIN; eGFR 74 ML/MIN
[2023-07-09] MEDS: amLODIPine 5mg tablet PO SCH (08:00)
[2023-07-10 06:00] VITALS: BP 136/81; PULSE 90; RESP 15; TEMP 97.5; O2SAT 97
[2023-07-10] MEDS: LORazepam 2 mg/ml vial IV PRN (07:16)
[2023-07-10] MEDS: thiamine 100mg tablet PO SCH (07:16)
[2023-07-10 07:52] LABS: EOSINOPHILS # (AUTO) 0.1 X10'3 (0-0.9); LYMPHOCYTES # (AUTO) 0.5 X10'3 (1.1-4.8); MEAN CORPUSCULAR VOLUME 99.1 FL (78-98); MONOCYTES # (AUTO) 0.5 X10'3 (0-0.9); RED CELL DISTRIBUTION WIDTH 13.7 % (11.5-14.5)
[2023-07-10 07:54] LABS: BASOPHILS % (AUTO) 0.8 % (0-1); EOSINOPHILS % (AUTO) 2.8 % (0-6); HEMATOCRIT 38.8 % (42.0-52.0); HEMOGLOBIN 13.1 g/dl (14.0-17.9); MEAN CORPUSCULAR HEMOGLOBIN 33.3 PG (27.0-31.0); MEAN CORPUSCULAR HGB CONC 33.6 g/dL (33.0-36.5); MEAN PLATELET VOLUME 8.8 FL (7.4-10.4); MONOCYTES % (AUTO) 13.2 % (2-12); NEUTROPHILS # (AUTO) 2.6 X10'3 (1.8-7.7); NEUTROPHILS % (AUTO) 70.2 % (42-75); PLATELET COUNT 190 X10'3 (140-440); RED BLOOD COUNT 3.92 X10'6 (4.70-6.10); WHITE BLOOD COUNT 3.7 X10'3 (4.5-11.0)
[2023-07-10 08:00] VITALS: RESP 15; O2SAT 97
[2023-07-10 08:15] LABS: AMYLASE 34 U/L (25-115); LIPASE 17 U/L (16-77)
[2023-07-10 09:15] LABS: ALANINE AMINOTRANSFERASE 24 U/L (12-78); ALBUMIN 2.6 G/DL (3.4-5.0); ALBUMIN/GLOBULIN RATIO 0.8 (1.1-1.5); ALKALINE PHOSPHATASE 88 IU/L (46-116); ANION GAP 7 (8-16); ASPARTATE AMINO TRANSFERASE 14 U/L (10-37); BILIRUBIN,TOTAL 0.4 MG/DL (0.1-1.0); BLOOD UREA NITROGEN 24 MG/DL (7-18); BUN/CREATININE RATIO 25.8 (10.0-20.0); CALCIUM 8.5 MG/DL (8.5-10.1); CHLORIDE 101 MMOL/L (99-107); CREATININE 0.93 MG/DL (0.60-1.10); GLUCOSE 106 MG/DL (70-104); POTASSIUM 4.4 MMOL/L (3.5-5.1); SODIUM 133 MMOL/L (135-145); TOTAL CARBON DIOXIDE 25.3 MMOL/L (24-32); TOTAL PROTEIN 5.9 G/DL (6.4-8.2); eCRCL 75 ML/MIN; eGFR 82 ML/MIN
[2023-07-10 10:14] LABS: PLATELET ESTIMATE NORMAL
[2023-07-10 10:16] LABS: LARGE PLATELETS FEW
[2023-07-10] MEDS ORDERED: MULT-25 PO (10:45)
[2023-07-10] MEDS ORDERED: tamsulosin capsule PO (10:45)
[2023-07-10] MEDS ORDERED: thiamine tablet PO (10:45)
[2023-07-10] MEDS ORDERED: ACET-1008 PO ×2 (10:47→10:54)
[2023-07-10 11:00] VITALS: BP 123/79; PULSE 91; RESP 11; TEMP 97.7; O2SAT 96
[2023-07-10] MEDS ORDERED: NOR5T PO (11:45)
[2023-07-11] MEDS ORDERED: folic acid 1mg tablet PO SCH (08:00)
== END 2023-07-10 11:48 | disposition home or self-care (01) | DRG 201 ==
LOC: ER 09:36 → ED HOLD 12:45 → UNDOADMIN 12:45 → PCU 3S 14:53 → ED HOLD 14:53 → UNDODISIN 07-10 11:48
PROVIDERS: ADMIT Internal Medicine; ATTEND Internal Medicine
PROC: BQ271ZZ Computerized Tomography (CT Scan) of Right Knee using Low Osmolar Contrast (ICD-10-PCS; principal; 2023-07-08)
DX: I48.0 Paroxysmal atrial fibrillation (principal); N17.0 Acute kidney failure with tubular necrosis; I47.20 Ventricular tachycardia, unspecified; I95.9 Hypotension, unspecified; E83.42 Hypomagnesemia; R55 Syncope and collapse; F10.939 Alcohol use, unspecified with withdrawal, unspecified; I10 Essential (primary) hypertension; M17.11 Unilateral primary osteoarthritis, right knee; M25.512 Pain in left shoulder; F10.929 Alcohol use, unspecified with intoxication, unspecified; Y90.6 Blood alcohol level of 120-199 mg/100 ml; F15.929 Other stimulant use, unspecified with intoxication, unspecified; Z88.4 Allergy status to anesthetic agent; Z90.49 Acquired absence of other specified parts of digestive tract; Z88.5 Allergy status to narcotic agent; Z85.810 Personal history of malignant neoplasm of tongue
CPT/HCPCS: 36415; 70450; 71045; 73030; 73564; 80048; 80053; 80076; 80305; 80320; 81001; 82140; 82150; 82948; 83036; 83605; 83690; 83735; 83880; 84100; 84145; 84484; 85007; 85008; 85025; 85379; 85610; 85651; 85730; 87040; 87081; 92508; 92616; 93005; 93306; 93971; 96365; 97110; 97116; 97161; 97530; 97535; 99291; A4314; A4338; A4615; A5200; A6212; A6222; A6258; A6449; G0378; J1644; J2060; J2270; J2405; J3411; J3475; J3480; J3490; J7030; J7120; Q9967

== ENCOUNTER 2025-02-18 09:46 | Outpatient (CLI) | payer MEDICARE, MEDICAID ==
[~2025-02-18 09:46] MED LIST changes: +ACET-1008 PO; +MULT-25 PO; -NO HOME MEDS; +NOR5T PO; +iohexol 300mg/ml 100ml inj. ONE; +tamsulosin capsule PO; +thiamine tablet PO
[2025-02-18 10:21] LABS: CREATININE 1.20 MG/DL (0.60-1.10); TOTAL CARBON DIOXIDE 31.2 MMOL/L (24-32); eGFR 61 ML/MIN
--- NOTE | 2025-02-18 14:44 | RADIOLOGY REPORT ---
PROCEDURE: CT CT NECK SOFT TISSUES W/ IV CONTRAST Reason for study/Clinical History: CERVICALGIA Comparison Study: None Exam Date: 02/18/2025 10:54 AM Radiation Dose Information: CT Dose: CTDI volume is 15 mGy. Dose-length product is 457 mGy*cm [Statement][Radimetrics Dose Report] TECHNIQUE: CT of the neck was performed with intravenous contrast with multiplanar images reviewed. FINDINGS: Aerodigestive Tract: No masslike enhancement in the aerodigestive tract. Lymph Nodes: No radiographically pathologic adenopathy. Salivary Glands: Symmetric parotid glands. Diffusely atrophied submandibular glands. Thyroid Gland: Unremarkable. Visualized Brain and Orbits: No acute process. Paranasal sinus and mastoid air cells: Scattered paranasal sinus mucosal thickening. Trace mastoid air cell effusion. Osseous Structures and Soft Tissues: No aggressive osseous lesions. Vascular: Patent major vasculature. Diffuse atherosclerotic disease in the carotid bulbs. Lung Apices: Clear. IMPRESSION: No definite neck mass or suspicious cervical lymphadenopathy. Diffuse atrophy of the bilateral submandibular glands.
== END 2025-02-18 23:59 | disposition home or self-care (01) ==
LOC: RAD 09:46
PROVIDERS: ATTEND Family Medicine
DX: K11.0 Atrophy of salivary gland (principal); M54.2 Cervicalgia; I65.29 Occlusion and stenosis of unspecified carotid artery; J32.8 Other chronic sinusitis
CPT/HCPCS: 36415; 70491; 80048; Q9967